=== PATIENT | male | born 1970 | race African-American/Black ===

== ENCOUNTER 2022-03-01 19:00 | Outpatient (CLI) | payer MEDICARE, BC | END 2022-03-01 19:01 | disposition home or self-care (01) | LOC: SLEEPLAB 19:00 | PROVIDERS: ATTEND Student in an Organized Health Care Education/Training Program | DX: G47.33 Obstructive sleep apnea (adult) (pediatric) (principal); G47.00 Insomnia, unspecified; R06.83 Snoring; I10 Essential (primary) hypertension; G47.10 Hypersomnia, unspecified; K21.9 Gastro-esophageal reflux disease without esophagitis; E66.9 Obesity, unspecified; Z68.33 Body mass index [BMI] 33.0-33.9, adult | CPT/HCPCS: 95810 ==

== ENCOUNTER 2023-11-23 10:43 | Outpatient (CLI) | payer MEDICARE, OTHER | END 2023-11-23 10:44 | disposition home or self-care (01) | LOC: BICMRI 10:43 | PROVIDERS: ATTEND Anesthesiology Pain Medicine | DX: M50.10 Cervical disc disorder with radiculopathy, unspecified cervical region (principal); G95.89 Other specified diseases of spinal cord | CPT/HCPCS: 72141 ==

== ENCOUNTER 2024-04-08 11:00 | Outpatient (CLI) | payer MEDICARE, OTHER | END 2024-04-08 11:01 | disposition home or self-care (01) | LOC: SCSRAD 11:00 | PROVIDERS: ATTEND Nurse Practitioner Family | DX: M25.512 Pain in left shoulder (principal); M25.511 Pain in right shoulder; M25.562 Pain in left knee ==